=== PATIENT | male | born 1955 | race Two or more races ===

== ENCOUNTER → 2016-12-11 | Outpatient (CLI) | payer BC ==
[2014-06-13 12:00] VITALS: BP 103/70
[~2016-12-11] MED LIST: ALLO100T PO; ALLO300T PO; CAPT25TA3 PO; CARB200T PO; LEVE500T56 PO; METF100010 PO; METO25TA9 PO; PHEN100C PO; PYRI50CA PO
[2016-12-11 12:18] LABS: CREATININE 0.9 mg/dL (0.7-1.3); GFR 86.4
== END | disposition home or self-care (01) ==
LOC: LAB 11:24
PROVIDERS: ATTEND Psychiatry & Neurology Neurology
DX: G40.909 Epilepsy, unspecified, not intractable, without status epilepticus (principal)
CPT/HCPCS: 36415; 82565; 84450; 84460; 84520

== ENCOUNTER → 2016-12-17 | Outpatient (CLI) | payer BC ==
[2014-06-13 12:00] VITALS: BP 103/70
== END | disposition home or self-care (01) ==
LOC: RT 08:41
PROVIDERS: ATTEND Psychiatry & Neurology Neurology
DX: G40.909 Epilepsy, unspecified, not intractable, without status epilepticus (principal)
CPT/HCPCS: 95816

== ENCOUNTER → 2017-02-09 | Outpatient (CLI) | payer BC ==
[2014-06-13 12:00] VITALS: BP 103/70
[2017-02-09 12:55] LABS: CREATININE 1.1 mg/dL (0.7-1.3); GFR 68.5
[2017-02-09 17:01] LABS: BASO # 0.1 x10^3/uL (0.0-0.2); BASO % 1 % (0-3); EOS % 2 % (0-3); HEMATOCRIT 47.2 % (39.0-53.0); HEMOGLOBIN 15.6 g/dL (13.0-17.5); LYMPH # 2.3 x10^3/uL (1.0-4.8); LYMPH % 17 % (24-48); MEAN CORPUSCULAR HEMOGLOBIN 32 pg (25-35); MEAN CORPUSCULAR HGB CONC 33 g/dL (31-37); MEAN CORPUSCULAR VOLUME 96 fL (79-100); MONO % 10 % (0-9); NEUT % 70 % (31-73); PLATELET COUNT 250 x10^3/uL (140-400); RED BLOOD COUNT 4.92 x10^6/uL (4.30-5.70); RED CELL DISTRIBUTION WIDTH 13.3 % (11.5-14.5); WHITE BLOOD COUNT 13.8 x10^3/uL (4.0-11.0)
== END | disposition home or self-care (01) ==
LOC: LAB 11:53
PROVIDERS: ATTEND Psychiatry & Neurology Neurology
DX: G40.909 Epilepsy, unspecified, not intractable, without status epilepticus (principal)
CPT/HCPCS: 36415; 82565; 82947; 84450; 84460; 84520; 85027

== ENCOUNTER → 2017-02-11 | Outpatient (CLI) | payer BC ==
[2014-06-13 12:00] VITALS: BP 103/70
[~2017-02-11] MED LIST changes: +GADOBUTROL 10 MMOL/10 ML VIAL IV ONE
--- NOTE | 2017-02-11 10:43 | RAD ---
PROCEDURE MRI brain with and without contrast. HISTORY History of epilepsy with new seizures. TECHNIQUE Sagittal T1, axial T1, axial T2, axial FLAIR, axial T2 gradient, coronal FLAIR, diffusion imaging with ADC map, post-contrast axial, and post-contrast coronal sequences are provided. 9 milliliters of intravenous Gadavist was administered without complication. COMPARISON June 12, 2014. FINDINGS The ventricles and sulci are within normal limits for age. A few scattered FLAIR hyperintensities in the supratentorial white matter are nonspecific but most suggestive of minimal small vessel ischemic disease. There is no acute intracranial hemorrhage or extra-axial fluid collection. There is no mass effect or midline shift. There is no restricted diffusion to suggest an acute infarct. Cervicomedullary junction is unremarkable. Pituitary and suprasellar region are unremarkable. Intracranial flow voids are preserved. There is mild pansinus mucosal thickening. Oblique coronal imaging through the temporal lobes demonstrates no evidence of mesial temporal sclerosis or temporal lobe mass. There is no pathologic enhancement. IMPRESSION Brain parenchymal volume loss and minimal probable small-vessel ischemic disease. No acute intracranial findings. Electronically signed by: Sandro Allen MD (Feb 11, 2017 10:42:12)
== END | disposition home or self-care (01) ==
LOC: MRI 08:54
PROVIDERS: ATTEND Psychiatry & Neurology Neurology
DX: G40.909 Epilepsy, unspecified, not intractable, without status epilepticus (principal); E11.9 Type 2 diabetes mellitus without complications
CPT/HCPCS: 70553; A9585

== ENCOUNTER → 2017-12-08 | Outpatient (CLI) | payer BC | END | disposition home or self-care (01) | LOC: RT 09:03 | DX: G40.909 Epilepsy, unspecified, not intractable, without status epilepticus (principal) | CPT/HCPCS: 95816 ==

== ENCOUNTER → 2018-04-01 | Outpatient (CLI) | payer BC ==
[2018-04-01 11:17] LABS: ADD MAN DIFF? NO
[2018-04-01 11:29] LABS: BASO # 0.1 x10^3/uL (0.0-0.2); BASO % 1 % (0-3); EOS # 0.5 x10^3/uL (0.0-0.7); EOS % 4 % (0-3); HEMATOCRIT 44.2 % (39.0-53.0); LYMPH # 2.8 x10^3/uL (1.0-4.8); LYMPH % 25 % (24-48); MEAN CORPUSCULAR HEMOGLOBIN 32 pg (25-35); MEAN CORPUSCULAR HGB CONC 34 g/dL (31-37); MEAN CORPUSCULAR VOLUME 95 fL (79-100); MONO % 9 % (0-9); NEUT % 61 % (31-73); PLATELET COUNT 218 x10^3/uL (140-400); RED BLOOD COUNT 4.67 x10^6/uL (4.30-5.70); RED CELL DISTRIBUTION WIDTH 13.4 % (11.5-14.5); WHITE BLOOD COUNT 11.5 x10^3/uL (4.0-11.0)
[2018-04-01 11:45] LABS: ALBUMIN 3.6 g/dL (3.4-5.0); ALK PHOS 69 U/L (46-116); ALT (SGPT) 21 U/L (16-63); ANION GAP 7 (6-14); AST (SGOT) 10 U/L (15-37); BLOOD UREA NITROGEN 18 mg/dL (8-26); BUN/CREATININE RATIO 20 (6-20); CALCIUM 8.5 mg/dL (8.5-10.1); CARBON DIOXIDE 29 mmol/L (21-32); CHLORIDE 106 mmol/L (98-107); CREATINE KINASE 38 U/L (39-308); CREATININE 0.9 mg/dL (0.7-1.3); GFR 86.1; GLUCOSE 100 mg/dL (70-99); POTASSIUM 4.2 mmol/L (3.5-5.1); SODIUM 142 mmol/L (136-145); TOTAL BILIRUBIN 0.6 mg/dL (0.2-1.0); TOTAL PROTEIN 7.3 g/dL (6.4-8.2)
[2018-04-01 11:55] LABS: THYROID STIM HORMONE (TSH) 1.665 uIU/mL (0.358-3.74)
== END | disposition home or self-care (01) ==
LOC: RT 08:30
DX: G40.909 Epilepsy, unspecified, not intractable, without status epilepticus (principal)
CPT/HCPCS: 36415; 80053; 82550; 84443; 85025; 95816